=== PATIENT | male | born 1955 | race Caucasian/White ===

== ENCOUNTER → 2020-04-25 | Outpatient (CLI) | payer OTHER ==
--- NOTE | 2020-04-25 16:11 | CONS ---
CONSULTATION REASON FOR CONSULTATION: Sleep apnea. This is a 64-year-old male patient with established diagnosis of obstructive sleep apnea. The patient was diagnosed with sleep apnea more than 25 years ago. He has gone through several CPAP units and the most recent CPAP unit that he has he has been using for the past 6 years at least and he bought it off [employer]. This is a ResMed S9 series which is set at a pressure of 11 cm of water. He is also using a Mirage Activa LT nasal mask. The patient was referred to me for an evaluation. He reported that at times in the middle of the night he is waking up and he is having difficulty generating sleep again. He thinks his machine is functioning well. His machine is being utilized without the humidification chamber. I checked the CPAP unit and I also downloaded the compliance data from the machine. The patient has utilized his machine 364 out of 365 days achieving around 6.2 hours of CPAP use per night at a pressure of 11 cm of water. No leaks and his AHI while on treatment is down to 0.8 indicating that the patient has used it and he has been successfully treated. Nevertheless, the patient is having ongoing difficulties in maintaining sleep. 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 He goes to work at around 7:30 a.m. and he arrives home at 6 p.m. He spends time with his family. He has a large dinner and does not have any other oral intake during the day. As such, the patient has a heavy dinner at around 6 p.m. He naps for around half an hour to an hour and then he gets up, watches television and does other activities and ultimately, he goes to bed around midnight. He is sleeping according to him around 3-4 hours having trouble in maintaining sleep. No grinding of his teeth. He does have some increased worry and increased anxiety and he worries about work and business in general. No creepy crawly sensation lower extremities. No symptoms to suggest restless legs syndrome. No sleepwalking or sleep talking. No nighttime palpitation. He has issues with hip pain and sciatica, which is making his overall sleep uncomfortable. No alcohol drinking. No substance abuse. No smoking. No morning headaches. No issues with nocturnal urination. PAST MEDICAL HISTORY: Obstructive sleep apnea, diabetes mellitus, hyperlipidemia, and osteoarthritis. PAST SURGICAL HISTORY: None. DRUG ALLERGIES: ASPIRIN. OUTPATIENT MEDICATION LIST: Outpatient medication list includes: Metformin 750 mg once a day, Zocor 20 mg p.o. daily, metoprolol 25 mg 3 times a day and Protonix 40 mg p.o. daily. SOCIAL HISTORY: Ex-smoker. No history of alcohol drinking. No history of substance abuse. He drinks decaffeinated coffee. FAMILY HISTORY: Negative for sleep apnea. Positive for diabetes mellitus in his parents and along with hyperlipidemia and arthritis. REVIEW OF SYSTEMS: Fourteen-point review of system was done. Positive findings are mentioned in history of present illness. No recent weight gain or weight loss. The patient has been able to maintain his own weight. He is unable to sleep without the CPAP machine. He states that whenever he sleeps without the machine he gets quite short of breath and he wakes up gasping for air. His weight has been stable around 275 pounds for many years. He sleeps on his side. No television in his bedroom environment. He has no dreams. No hallucinations. No cataplexy. No sleep paralysis. No other new complaints otherwise for now. As stated, he does have some increased irritability. Increased anxiety and worry and stress from work. No claustrophobia. No depression. PHYSICAL EXAMINATION: HIS CURRENT VITALS: His blood pressure is 147/71, pulse is 69, respirations 16, temperature 97.8. Height is 6 feet 0 inches. Weight is 268. [place] score is at 13. BMI 38.1. Neck size 21 inches. Saturation 99% on room air. GENERAL APPEARANCE: Calm, comfortable. HEAD: Atraumatic, normocephalic. NECK: Supple. No JVD. No goiter or neck masses. Mallampati class 4. LUNGS: Clear to auscultation. HEART: Heart sounds are regular rate and rhythm. Normal S1, S2. No S3, S4. No murmurs. ABDOMEN: Soft, nontender. No organomegaly. EXTREMITIES: No edema. No cyanosis or clubbing. NEUROLOGICALLY: Awake and alert. There is no focal neurological deficits. PSYCHIATRICALLY: The patient has some anxiety. No depression. IMPRESSION: 1. Obstructive sleep apnea. Based on the compliance data from the machine, the patient has been effectively treated with a CPAP pressure of 11 cm of water. His AHI while on treatment is down to 0.8. Nevertheless, he has an older generation CPAP unit which is a ResMed S9 series and the patient is not using the humidification chamber. He is also using Mirage Activa LT nose mask. I do question the functionality of this current CPAP unit. It may be one of the causes while the patient is having sleep maintenance insomnia. 2. Sleep maintenance insomnia. The patient has frequent nocturnal arousals. Consider pain. Consider increased anxiety and stress of work. Consider nonfunctioning of the CPAP units. 3. Obesity with a body mass index of 38.1. 4. Hyperlipidemia. 5. Hypertension. 6. Diabetes mellitus. 7. Osteoarthritis. PLAN: I had a lengthy discussion with the patient. Ideally would like to update his CPAP unit. He was not sure he wanted to do this right now. One option is to give the patient home sleep study and if it is positive, proceed with ordering an APAP unit. Another option that the patient was given is to purchase his own machine. I would be glad to make the appropriate pressure setting adjustments if he ends up purchasing his own machine. I offered him two different masks which are more comfortable than the one that he is using. I offered him the DreamWisp and I also offered him the AirFit N20 large size nose mask. We discussed issues such as relaxation techniques and meditation as a sleep promoting agent. No need for any hypnotic agents for now. Encourage weight loss. Eliminate naps during the day. No late dinners. No late naps in the afternoon or early evening hours. Otherwise his comorbid conditions are essentially stable. He will make a final decision and he will let me know if he wants to proceed with a newer CPAP unit at a later stage. Otherwise, I set up a followup appointment with him in a year's time. PATRICK / GISSELN: [id number] /
== END | disposition home or self-care (01) ==
LOC: SLEEP 14:16
PROVIDERS: ATTEND Internal Medicine Critical Care Medicine
DX: G47.33 Obstructive sleep apnea (adult) (pediatric) (principal); E66.9 Obesity, unspecified; E78.5 Hyperlipidemia, unspecified; I10 Essential (primary) hypertension; E11.9 Type 2 diabetes mellitus without complications; M19.90 Unspecified osteoarthritis, unspecified site; R52 Pain, unspecified; Z99.89 Dependence on other enabling machines and devices; Z68.38 Body mass index [BMI] 38.0-38.9, adult
CPT/HCPCS: 99211

== ENCOUNTER 2021-02-11 05:14 | Emergency (ER) | payer OTHER ==
[2021-02-11] MEDS ORDERED: DEXAMETHASONE SOD PHOSPHATE 10 MG/ML 1 ML VIAL IVP STA (05:36)
[2021-02-11] MEDS ORDERED: ACETAMINOPHEN TAB 500 MG TAB PO STA (05:36)
[2021-02-11] MEDS ORDERED: ALBUTEROL HFA INHALER INHALATION STA (05:36)
[2021-02-11] MEDS ORDERED: KETOROLAC 15 MG/ML 1 ML VIAL IVP STA (05:36)
[2021-02-11] MEDS ORDERED: SODIUM CHLORIDE 0.9% 1,000 ML IV STA ×2 (05:36)
--- NOTE | 2021-02-11 05:38 | ED ---
URI HPI - General Source: patient, RN notes reviewed Mode of arrival: ambulatory Limitations: no limitations <Jovan Langley - Last Filed: 02/11/21 07:41> - General Source: patient Mode of arrival: ambulatory Limitations: no limitations - History of Present Illness MD Complaint: fever, cough, sinus pain -: days(s) Severity: moderate Severity scale (1-10): 6 Quality: sharp Consistency: constant Improves With: nothing Context: sick contacts Associated Symptoms: fever, chills, myalgias, cough, chest pain Treatments Prior to Arrival: none <Cachorro Gerardo - Last Filed: 03/04/21 01:47> - General Chief Complaint: Upper Respiratory Infection Stated Complaint: cough Time Seen by Provider: 02/11/21 05:17 - History of Present Illness Initial Comments: This a 65-year-old male presents emergency Department chief complaint of cough c ongestion. Patient states she's been sick for last couple days. Patient's significant other is also on sick. No prior COVID-19 vaccination. Patient complains of mild fever chills body aches. No GI symptoms went to chest pain. (Jovan Langley) - Related Data Allergies Allergy/AdvReac Type Severity Reaction Status Date / Time aspirin AdvReac Nausea & Verified 02/12/21 18:21 Vomiting & Diarrhea Review of Systems ROS Other: All systems not noted in ROS Statement are negative. <Jovan Langley - Last Filed: 02/11/21 07:41> ROS Other: All systems not noted in ROS Statement are negative. <Cachorro Gerardo - Last Filed: 03/04/21 01:47> ROS Statement: Those systems with pertinent positive or pertinent negative responses have been documented in the HPI. Past Medical History Past Medical History: Hypertension History of Any Multi-Drug Resistant Organisms: None Reported Past Surgical History: No Surgical Hx Reported Past Psychological History: No Psychological Hx Reported Smoking Status: Never smoker Past Alcohol Use History: None Reported Past Drug Use History: None Reported <Cachorro Gerardo - Last Filed: 03/04/21 01:47> General Exam General appearance: alert, in no apparent distress Head exam: Present: atraumatic, normocephalic, normal inspection Eye exam: Present: normal appearance, PERRL, EOMI. Absent: scleral icterus, conjunctival injection, periorbital swelling ENT exam: Present: normal exam, normal oropharynx, mucous membranes moist Neck exam: Present: normal inspection, full ROM. Absent: tenderness, menin gismus, lymphadenopathy Respiratory exam: Present: normal lung sounds bilaterally. Absent: respiratory distress, wheezes, rales, rhonchi, stridor Cardiovascular Exam: Present: regular rate, normal rhythm, normal heart sounds. Absent: systolic murmur, diastolic murmur, rubs, gallop, clicks <Jovan Langley - Last Filed: 02/11/21 07:41> Limitations: no limitations General appearance: alert, in no apparent distress Head exam: Present: atraumatic, normocephalic, normal inspection Eye exam: Present: normal appearance, PERRL, EOMI. Absent: scleral icterus, conjunctival injection, periorbital swelling ENT exam: Present: normal exam, mucous membranes moist Neck exam: Present: normal inspection. Absent: tenderness, meningismus, lymphadenopathy Respiratory exam: Present: normal lung sounds bilaterally. Absent: respiratory distress, wheezes, rales, rhonchi, stridor Cardiovascular Exam: Present: regular rate, normal rhythm, normal heart sounds. Absent: systolic murmur, diastolic murmur, rubs, gallop, clicks GI/Abdominal exam: Present: soft, normal bowel sounds. Absent: distended, tenderness, guarding, rebound, rigid Extremities exam: Present: normal inspection, full ROM, normal capillary refill. Absent: tenderness, pedal edema, joint swelling, calf tenderness Back exam: Present: normal inspection Neurological exam: Present: alert, oriented X3, CN II-XII intact Psychiatric exam: Present: normal affect, normal mood Skin exam: Present: warm, dry, intact, normal color. Absent: rash <Cachorro Gerardo - Last Filed: 03/04/21 01:47> Course <Cachorro Gerardo - Last Filed: 03/04/21 01:47> Vital Signs 02/11/21 02/11/21 02/11/21 05:21 06:24 07:25 Temperature 99.4 F 98.6 F 98.6 F Pulse Rate 77 70 Respiratory 18 16 Rate Blood Pressure 144/79 154/86 O2 Sat by Pulse 98 96 Oximetry 02/11/21 02/11/21 08:56 09:16 Temperature 98.7 F 98.7 F Pulse Rate 73 73 Respiratory 18 18 Rate Blood Pressure 147/87 147/87 O2 Sat by Pulse 97 97 Oximetry - Reevaluation(s) Reevaluation #1: Medical records reviewed Patient has significant improvement here in the emergency department Patient informed results and questions answered (Cachorro Gerardo) Medical Decision Making - Lab Data Result diagrams: 02/11/21 05:45 02/11/21 05:45 <Jovan Langley - Last Filed: 02/11/21 07:41> - Lab Data Result diagrams: 02/11/21 05:45 02/11/21 05:45 - EKG Data -: EKG Interpreted by Me (EKG is sinus rhythm 67 NM 188 QRS 114 QTc 07/27) - Radiology Data Radiology results: report reviewed (CXR is negative for acute disease), image reviewed <Cachorro Gerardo - Last Filed: 03/04/21 01:47> - Medical Decision Making Patient has positive for COVID-19 did receive monoclonal antibodies discharged in stable condition. (Jovan Langley) 65 male to the ED co COVID 19 feels better w monoclonal antibodies (Cachorro Gerardo) - Lab Data Lab Results 02/11/21 02/11/21 02/11/21 Range/Units 05:45 05:45 05:45 WBC 4.4 (3.8-10.6) k/uL RBC 4.80 (4.30-5.90) m/uL Hgb 14.7 (13.0-17.5) gm/dL Hct 42.8 (39.0-53.0) % MCV 89.2 (80.0-100.0) fL MCH 30.6 (25.0-35.0) pg MCHC 34.3 (31.0-37.0) g/dL RDW 12.7 (11.5-15.5) % Plt Count 204 (150-450) k/uL MPV 7.8 Neutrophils % 71 % Lymphocytes % 17 % Monocytes % 7 % Eosinophils % 1 % Basophils % 2 % Neutrophils # 3.1 (1.3-7.7) k/uL Lymphocytes # 0.7 L (1.0-4.8) k/uL Monocytes # 0.3 (0-1.0) k/uL Eosinophils # 0.0 (0-0.7) k/uL Basophils # 0.1 (0-0.2) k/uL PT 10.1 (9.0-12.0) sec INR 0.9 (<1.2) APTT 23.5 (22.0-30.0) sec Sodium 135 L (137-145) mmol/L Potassium 4.8 (3.5-5.1) mmol/L Chloride 100 (98-107) mmol/L Carbon Dioxide 23 (22-30) mmol/L Anion Gap 12 mmol/L BUN 16 (9-20) mg/dL Creatinine 1.01 (0.66-1.25) mg/dL Est GFR (CKD-EPI)AfAm >90 (>60 ml/min/1.73 sqM) Est GFR (CKD-EPI)NonAf 78 (>60 ml/min/1.73 sqM) Glucose 157 H (74-99) mg/dL Plasma Lactic Acid Ger (0.7-2.0) mmol/L Calcium 9.3 (8.4-10.2) mg/dL Magnesium 1.9 (1.6-2.3) mg/dL Total Bilirubin 0.5 (0.2-1.3) mg/dL AST 78 H (17-59) U/L ALT 75 H (4-49) U/L Alkaline Phosphatase 48 (38-126) U/L Lactate Dehydrogenase 372 (313-618) U/L C-Reactive Protein 2.0 H (<1.0) mg/dL Total Protein 7.8 (6.3-8.2) g/dL Albumin 4.5 (3.5-5.0) g/dL Coronavirus (PCR) (Not Detectd) 02/11/21 02/11/21 Range/Units 05:45 05:45 WBC (3.8-10.6) k/uL RBC (4.30-5.90) m/uL Hgb (13.0-17.5) gm/dL Hct (39.0-53.0) % MCV (80.0-100.0) fL MCH (25.0-35.0) pg MCHC (31.0-37.0) g/dL RDW (11.5-15.5) % Plt Count (150-450) k/uL MPV Neutrophils % % Lymphocytes % % Monocytes % % Eosinophils % % Basophils % % Neutrophils # (1.3-7.7) k/uL Lymphocytes # (1.0-4.8) k/uL Monocytes # (0-1.0) k/uL Eosinophils # (0-0.7) k/uL Basophils # (0-0.2) k/uL PT (9.0-12.0) sec INR (<1.2) APTT (22.0-30.0) sec Sodium (137-145) mmol/L Potassium (3.5-5.1) mmol/L Chloride (98-107) mmol/L Carbon Dioxide (22-30) mmol/L Anion Gap mmol/L BUN (9-20) mg/dL Creatinine (0.66-1.25) mg/dL Est GFR (CKD-EPI)AfAm (>60 ml/min/1.73 sqM) Est GFR (CKD-EPI)NonAf (>60 ml/min/1.73 sqM) Glucose (74-99) mg/dL Plasma Lactic Acid Ger 1.1 (0.7-2.0) mmol/L Calcium (8.4-10.2) mg/dL Magnesium (1.6-2.3) mg/dL Total Bilirubin (0.2-1.3) mg/dL AST (17-59) U/L ALT (4-49) U/L Alkaline Phosphatase (38-126) U/L Lactate Dehydrogenase (313-618) U/L C-Reactive Protein (<1.0) mg/dL Total Protein (6.3-8.2) g/dL Albumin (3.5-5.0) g/dL Coronavirus (PCR) Detected A (Not Detectd) Disposition Is patient prescribed a controlled substance at d/c from ED?: No Time of Disposition: 07:42 <Jovan Langley - Last Filed: 02/11/21 07:41> Is patient prescribed a controlled substance at d/c from ED?: No <Cachorro Gerardo - Last Filed: 03/04/21 01:47> Clinical Impression: Coronavirus infection Disposition: HOME SELF-CARE Condition: Good Instructions (If sedation given, give patient instructions): Coronavirus [place] 2019 (COVID-19) Additional Instructions: Please return to the Emergency Department if symptoms worsen or any other concerns. Referrals: None,Stated [REFERRING] - 1-2 days
[2021-02-11 06:08] LABS: Basophils # (A) 0.1 k/uL (0-0.2); Basophils % (A) 2 %; Eosinophils % (A) 1 %; HCT 42.8 % (39.0-53.0); HGB 14.7 gm/dL (13.0-17.5); Lymphocytes # (A) 0.7 k/uL (1.0-4.8); Lymphocytes % (A) 17 %; MCH 30.6 pg (25.0-35.0); MCHC 34.3 g/dL (31.0-37.0); MCV 89.2 fL (80.0-100.0); Mean Platelet Volume 7.8; Monocytes # (A) 0.3 k/uL (0-1.0); Monocytes % (A) 7 %; Neutrophils # (A) 3.1 k/uL (1.3-7.7); Neutrophils % (A) 71 %; Platelet Count 204 k/uL (150-450); RDW 12.7 % (11.5-15.5); WBC 4.4 k/uL (3.8-10.6)
--- NOTE | 2021-02-11 06:12 | XR ---
EXAMINATION TYPE: XR chest 1V portable DATE OF EXAM: 02/11/2021 COMPARISON: NONE HISTORY: Pneumonia TECHNIQUE: Single view FINDINGS: Heart and mediastinum are normal. Lungs are clear. Diaphragm is normal. Bony thorax is inta ct. IMPRESSION: Normal chest.
[2021-02-11 06:25] LABS: ALT 75 U/L (4-49); AST 78 U/L (17-59); African American GFR (CKD) >90 (>60 ml/min/1.73 sqM); Albumin 4.5 g/dL (3.5-5.0); Alkaline Phosphatase 48 U/L (38-126); Anion Gap 12 mmol/L; Blood Urea Nitrogen 16 mg/dL (9-20); Calcium 9.3 mg/dL (8.4-10.2); Carbon Dioxide 23 mmol/L (22-30); Chloride 100 mmol/L (98-107); Glucose 157 mg/dL (74-99); LDH 372 U/L (313-618); Magnesium 1.9 mg/dL (1.6-2.3); Non-African American GFR(CKD) 78 (>60 ml/min/1.73 sqM); Potassium 4.8 mmol/L (3.5-5.1); Sodium 135 mmol/L (137-145); Total Bilirubin 0.5 mg/dL (0.2-1.3); Total Protein 7.8 g/dL (6.3-8.2)
[2021-02-11 06:37] LABS: INR 0.9 (<1.2); Partial Thromboplastin Time 23.5 sec (22.0-30.0); Prothrombin Time 10.1 sec (9.0-12.0)
[2021-02-11] MEDS ORDERED: CASIRIVIMAB/IMDEVIMAB (EUA) 1,200 MG in SODIUM CHLORIDE 0.9% 100 ML IVPB ONE (07:30)
[2021-02-11] MEDS ORDERED: SODIUM CHLORIDE 0.9% 50 ML IVPB ONE (08:00)
[2021-02-11 08:57] VITALS: BP 147/87; PULSE 73; RESP 18; TEMP 98.7
== END 2021-02-11 09:16 | disposition home or self-care (01) ==
LOC: EC 05:14
DX: U07.1 COVID-19 (principal); I10 Essential (primary) hypertension
CPT/HCPCS: 96375 ×3; 96361 ×3; 99284 ×2; 36415; 94640; 93005; 80053; 83605; 83615; 83735; 85025; 85610; 85730; 86140; 87040; 87635; 71045; 96374; M0243; J1100; J1885; Q0243

== ENCOUNTER 2021-02-12 17:15 | Emergency (ER) | payer OTHER ==
[2021-02-12 18:23] VITALS: RESP 18
--- NOTE | 2021-02-12 21:13 | ED ---
Recheck HPI - General Chief Complaint: Recheck/Abnormal Lab/Rx Stated Complaint: Blood Infection Time Seen by Provider: 02/12/21 20:02 Source: patient, RN notes reviewed Mode of arrival: ambulatory Limitations: no limitations - History of Present Illness Initial Comments: Patient is a 65-year-old male presenting to emergency Department after receiving the call that he had positive blood cultures and that he needed to come into the ER. Patient was seen yesterday, he was diagnosed with Covid. Patient states he received monoclonal antibodies, some fluids and was sent home. Patient states he's been feeling okay. He denies any fevers or chills, no chest pain or short of breath. Has been eating and drinking as normal. Patient has no further comp laints. Vital signs are stable upon arrival. - Related Data Allergies Allergy/AdvReac Type Severity Reaction Status Date / Time aspirin AdvReac Nausea & Verified 02/12/21 18:21 Vomiting & Diarrhea Review of Systems ROS Statement: Those systems with pertinent positive or pertinent negative responses have been documented in the HPI. ROS Other: All systems not noted in ROS Statement are negative. Past Medical History Past Medical History: Hypertension History of Any Multi-Drug Resistant Organisms: None Reported Past Surgical History: No Surgical Hx Reported Past Psychological History: No Psychological Hx Reported Smoking Status: Never smoker Past Alcohol Use History: None Reported Past Drug Use History: None Reported General Exam - General Exam Comments Initial Comments: GENERAL: Patient is well-developed and well-nourished. Patient is nontoxic and in no acute distress. HEAD: Atraumatic, normocephalic. EYES: Pupils equal round and reactive to light, extraocular movements intact, sclera anicteric, conjunctiva are normal. Eyelids were unremarkable. ENT: Moist mucous membranes. NECK: Normal range of motion, supple without lymphadenopathy or JVD. LUNGS: Unlabored respirations. Breath sounds clear to auscultation bilaterally and equal. No wheezes rales or rhonchi. HEART: Regular rate and rhythm without murmurs, rubs or gallops. ABDOMEN: Soft, nontender, normoactive bowel sounds. No guarding, no rebound. No masses appreciated. MUSCULOSKELETAL: Normal extremities with adequate strength and normal range of motion, no pitting or edema. No clubbing or cyanosis. NEUROLOGICAL: Patient is alert and oriented x 3. SKIN: Warm, Dry, normal turgor, no rashes or lesions noted. Limitations: no limitations Course Vital Signs 02/12/21 02/12/21 18:21 21:16 Temperature 98.0 F 98 F Pulse Rate 69 72 Respiratory 18 18 Rate Blood Pressure 143/89 139/88 O2 Sat by Pulse 99 99 Oximetry Medical Decision Making - Medical Decision Making Patient is a 65-year-old male sent in due to positive blood cultures that were obtained yesterday. He was seen and evaluated, diagnosed with Covid yesterday. His vital signs are stable, his exam is unremarkable today. Patient states he feels well, is in no acute distress. He has no fevers. He is eating and drinking as normal. Preliminary blood cultures reveals gram-positive cocci in clusters. With the possibility of this being a contaminated blood culture, and the patient not wanting to stay. Patient be discharged home pending final blood culture status. I recommended following up this primary care. Strict return parameters were discussed with them and he verbalized understanding. Case discussed with Dr. Naik who is in agreement with this plan of care. Disposition Clinical Impression: Positive blood culture Disposition: HOME SELF-CARE Condition: Stable Instructions (If sedation given, give patient instructions): Normal Exam (ED) Additional Instructions: Please return to the Emergency Department if symptoms worsen or any other concerns. Please follow-up with your primary care physician regarding these positive blood culture results. Allow another one to 2 days for final bacteria determination. Is patient prescribed a controlled substance at d/c from ED?: No Referrals: Nathaniel Arnett [Primary Care Provider] - 1-2 days Time of Disposition: 21:13
[2021-02-12 21:31] VITALS: BP 139/88; PULSE 72; TEMP 98
== END 2021-02-12 21:16 | disposition home or self-care (01) ==
LOC: EC 17:15
DX: U07.1 COVID-19 (principal); I10 Essential (primary) hypertension
CPT/HCPCS: 99283